=== PATIENT | male | born 1990 | race Caucasian/White ===

== ENCOUNTER 2018-03-01 11:16 | Emergency (ER) | payer BC ==
[~2018-03-01] VITALS: Ht 175.3 cm; Wt 81.2 kg
--- NOTE | 2018-03-01 11:32 | PHYS DOC ---
Past History Past Medical History: Testicular Torsion Additional Past Surgical Histo: orchectomy, and typmanostomy tubes Smoking: Cigarettes Alcohol Use: Occasionally Drug Use: None Adult General Chief Complaint Chief Complaint: abnormal ekg referred from clinic HPI HPI 28-year-old male presenting to the emergency department today after being seen in clinic having an EKG performed and being sent here. He reports having chest pain intermittently for 2 years. He describes it as a sharp shooting pain over the left chest. It is nonradiating. He denies fevers chills or cough. He denies strong family history of cardiac disease. He denies a family history of sudden cardiac or early in life. The patient denies unilateral leg swelling hemoptysis family or personal history of blood clotting disorders. The pt denies recent immobilization or surgery. The patient denies a history of diabetes high cholesterol. He denies having hypertension. Currently the patient denies having any pain. Review of systems is negative for abdominal pain nausea vomiting diaphoresis fevers chills. All other review of systems is negative unless otherwise noted in history of present illness. ED course: 28-year-old male presenting to the emergency department after being referred for a reported abnormal EKG in clinic. On arrival the patient is afebrile well-appearing. On examination he has clear lungs bilaterally. No crepitus to palpation the chest wall. Abdomen is soft and nontender. EKG and blood work obtained along with chest x-ray. [facility]24/2018 shows sinus rhythm with a regular rate. Prolonged AL interval. ST segments show mild repolarization in lead V3. No continuous segment ST elevation. Not consistent of ischemic changes. Repeat EKG here at approximately 11:33 AM on 03/01/2018. EKG shows mildly prolonged AL interval just at the upper range of normal. ST segments show similar mild ST segment elevation in lead V3. Not contiguous. Not suggestive of ischemia. No reciprocal changes. Patient currently does not have any chest pain to support any clinical signs or symptoms of ACS. Patient is low risk. Heart score calculated to be 1. Patient is wells low risk. D-dimer within normal limits. On reexamination the patient continues to not have chest pain. The patient has been examined and was not found to have an emergency medical condition. The patient was then discharged home in stable condition to follow up with their primary care physician over the next 2-3 days. They were to return if their symptoms worsened or if they were concerned for any reason. They were also instructed to return to the emergency department if they were unable to get the recommended and appropriate follow-up. [id number] discharge instructions and return precautions were given. Patient's questions were answered to their satisfaction. Patient is comfortable with plan. Review of Systems Review of Systems SEE ABOVE. Physical Exam Physical Exam SEE ABOVE Constitutional: Well developed, well nourished, no acute distress, non-toxic appearance. HENT: Normocephalic, atraumatic, bilateral external ears normal, oropharynx moist, no oral exudates, nose normal. Eyes: PERRLA, EOMI, conjunctiva normal, no discharge. [] Neck: Normal range of motion, no tenderness, supple, no stridor. [] Cardiovascular: regular rhythm, no murmur [] Lungs & Thorax: Bilateral breath sounds clear to auscultation Abdomen: Bowel sounds normal, soft, no tenderness, no masses, no pulsatile masses. [] Skin: Warm, dry, no erythema, no rash. Back: No tenderness, no CVA tenderness. [] Extremities: No tenderness, no cyanosis, no clubbing, ROM intact, no edema. No clinical signs of DVT. Neurologic: Alert and oriented X 3, normal motor function, normal sensory function, no focal deficits noted. [] Psychologic: Affect normal, judgement normal, mood normal. [] EKG EKG [] Radiology/Procedures Radiology/Procedures [] Course & Med Decision Making Course & Med Decision Making Pertinent Labs and Imaging studies reviewed. (See chart for details) [] Dragon Disclaimer Dragon Disclaimer This electronic medical record was generated, in whole or in part, using a voice recognition dictation system. Departure Departure: Impression: Primary Impression: Chest pain Disposition: 01 HOME, SELF-CARE Condition: STABLE Referrals: DAVID LU (PCP) Patient Instructions: Chest Pain (Nonspecific), [id number] Additional Instructions: Thank you for allowing us to participate in your care today. Return to the emergency department you have any new or worsening symptoms, or if you are concerned for any reason. Return to emergency department if you have any new or concerning symptoms including but not limited to fever, chills, nausea, vomiting, intractable pain, any new rashes, chest pain, shortness of air , uncontrolled bleeding, difficulty breathing, and/or vision loss. Follow up with your primary care physician within 3 days. Call your Primary Doctor tomorrow and inform them of your visit today. If you do not have a primary care provider we are happy to provide you with a list of our primary care providers contact information. This condition should be evaluated by your primary care physician and any recommended consulting services for continued management within 2-3 days after discharge. If at any time, you are having difficulty getting into your primary care doctor or a specialist, return to the emergency department. CLARICE ALEJANDRO MD Mar 01, 2018 11:32
--- NOTE | 2018-03-01 11:40 | RAD ---
Single view of the chest. 03/01/2018 11:07 AM Indication: chest pain for a few years Comparison: None Findings: There is no focal consolidation. There is no pleural effusion or pneumothorax. The cardiomediastinal silhouette and pulmonary vasculature are within normal limits. No acute osseous abnormalities are seen. Impression: No evidence of acute cardiopulmonary process. Electronically signed by: Myke Savage MD (03/01/2018 11:38 AM) [id number]
[2018-03-01] MEDS ORDERED: IV NORMAL SALINE 1,000ML 1,000 ML IV ONE (11:45)
[2018-03-01 11:54] LABS: BASO # 0.1 x10^3/uL (0.0-0.2); BASO % 1 % (0-3); EOS # 0.3 x10^3/uL (0.0-0.7); EOS % 4 % (0-3); HEMATOCRIT 48.4 % (39.0-53.0); HEMOGLOBIN 16.5 g/dL (13.0-17.5); LYMPH % 23 % (24-48); MEAN CORPUSCULAR HEMOGLOBIN 30 pg (25-35); MEAN CORPUSCULAR HGB CONC 34 g/dL (31-37); MEAN CORPUSCULAR VOLUME 86 fL (79-100); MONO # 0.8 x10^3/uL (0.0-1.1); MONO % 9 % (0-9); NEUT # 5.4 x10^3uL (1.8-7.7); NEUT % 63 % (31-73); PLATELET COUNT 288 x10^3/uL (140-400); RED BLOOD COUNT 5.61 x10^6/uL (4.30-5.70); RED CELL DISTRIBUTION WIDTH 12.5 % (11.5-14.5); WHITE BLOOD COUNT 8.6 x10^3/uL (4.0-11.0)
[2018-03-01 11:55] VITALS: BP 138/80
[2018-03-01 12:05] LABS: ALBUMIN 4.4 g/dL (3.4-5.0); CALCIUM 9.4 mg/dL (8.5-10.1); CREATININE 1.2 mg/dL (0.7-1.3); DIRECT BILIRUBIN 0.1 mg/dL (0.0-0.2); GFR 73.2; POTASSIUM 4.4 mmol/L (3.5-5.1); TOTAL BILIRUBIN 0.6 mg/dL (0.2-1.0); TOTAL PROTEIN 8.2 g/dL (6.4-8.2)
--- NOTE | 2018-03-05 16:13 | EKG ---
[address] [address] Test Date: 2018-03-01 Test Time: 11:33:06 Pat Name: SAMMIE LU Department: Room: Gender: M [employer]: : 1990 Requested By: CLARICE ALEJANDRO Order Number: [id number] Reading MD: Ambrocio East MD Measurements Intervals [place] Rate: 107 P: -25 IN: 198 QRS: 31 QRSD: 70 T: 33 QT: 318 QTc: 430 Interpretive Statements SINUS TACHYCARDIA Electronically Signed On 03-06-2018 8:58:13 CDT by Ambrocio East MD
== END 2018-03-01 12:47 | disposition home or self-care (01) ==
LOC: ER 11:16
DX: R07.89 Other chest pain (principal); F17.210 Nicotine dependence, cigarettes, uncomplicated
CPT/HCPCS: 36415; 71045; 80048; 80076; 83690; 84484; 85025; 85379; 99285; J7030

== ENCOUNTER 2021-06-17 19:54 | Emergency (ER) | payer SELFPAY ==
[~2021-06-17] VITALS: Ht 175.3 cm; Wt 81.2 kg
[2021-06-17 20:09] VITALS: BP 130/81
[2021-06-17] MEDS ORDERED: IBUPROFEN 400 MG TABLET. PO ONE (20:15)
--- NOTE | 2021-06-17 20:19 | PHYS DOC ---
Past History Past Medical History: No Pertinent History Past Surgical History: Other Additional Past Surgical Histo: orchectomy, and typmanostomy tubes Smoking: Cigarettes Alcohol Use: Occasionally Drug Use: None General Adult EDM: Chief Complaint: LOWEREXTREMITY INJURY HPI: HPI: Patient is a 31-year-old male coming in for right ankle pain and swelling. Patient fell down a hill about 8 hours prior to arrival. Has not been able to feel weak during the day, is not taking medications for pain. Has had previous injuries to this ankle but denies any fractures or surgeries. Review of Systems: Review of Systems: All other systems within normal limits except for as noted in the HPI Allergies: Allergies: Allergies Coded Allergies Type Severity Reaction Last Updated Verified No Known Drug Allergies 03/01/18 No Physical Exam: PE: Constitutional: Well developed, well nourished, no acute distress, non-toxic appearance. [] HENT: Normocephalic, atraumatic, bilateral external ears normal, nose normal. [] Eyes: PERRLA, conjunctiva normal, no discharge. [] Neck: No rigidity, supple, no stridor. [] Cardiovascular: Regular rate and rhythm, brisk cap refill [] Lungs & Thorax: Non labored symmetric respirations, no tachypnea or respiratory distress [] Abdomen: Soft, nondistended. Skin: Warm, dry, no erythema, no rash. [] Back: Unremarkable Extremities: No deformities, range of motion grossly intact, no lower extremity edema. Right ankle exam: Tenderness and swelling on lateral malleolus [] Neurologic: Alert and oriented X 3, no focal deficits noted. [] Psychologic: Affect normal, judgement normal, mood normal. [] Current Patient Data: Vital Signs: Vital Signs Date Time Temp Pulse Resp B/P (MAP) Pulse Ox O2 Delivery O2 Flow Rate FiO2 06/17/21 20:09 108 18 130/81 (97) 99 EKG: EKG: [] Radiology/Procedures: Radiology/Procedures: [address] [address] IMAGING REPORT Signed PATIENT: SAMMIE LU ACCOUNT: [id number] : 1990 LOCATION: ER AGE: 31 SEX: M EXAM STATUS: REG ER ORD. PHYSICIAN: NICOLAS HOLLIS MD REASON: lateral malleolus swelling PROCEDURE: ANKLE RIGHT 3V Study: XR EXAM OF ANKLE_RIGHT 3VIEWS Indication: Lateral malleolus swelling. Comparison: None. Findings: Edematous soft tissues at the lateral ankle. The malleoli are intact. Symmetric ankle mortise considering the absence of weightbearing. Unremarkable talar dome. No acute fracture seen throughout the partially imaged foot. Impression: Edematous soft tissues at the lateral ankle. No acute fracture is identified or traumatic malalignment. Electronically signed by: SAMMIE ANDERSON MD (06/17/2021 10:23 PM) [id number] DICTATED AND SIGNED BY: SAMMIE ANDERSON MD DATE: 06/17/212221 CC: NICOLAS HOLLIS MD; PCP,NO ~MTH0 0 [] Heart Score: C/O Chest Pain: No Risk Factors: Risk Factors: DM, Current or recent (<one month) smoker, HTN, HLP, family history of CAD, obesity. Risk Scores: Score 0 - 3: 2.5% MACE over next 6 weeks - Discharge Home Score 4 - 6: 20.3% MACE over next 6 weeks - Admit for Clinical Observation Score 7 - 10: 72.7% MACE over next 6 weeks - Early Invasive Strategies Course & Med Decision Making: Course & Med Decision Making Pertinent Labs and Imaging studies reviewed. (See chart for details) [] Dragon Disclaimer: Dragon Disclaimer: This electronic medical record was generated, in whole or in part, using a voice recognition dictation system. Departure Departure: Impression: Primary Impression: Right ankle sprain Disposition: HOME / SELF CARE / HOMELESS Condition: STABLE Referrals: PCP,NO (PCP) Patient Instructions: RICE - Routine Care for Injuries Scripts Ibuprofen (IBUPROFEN) 800 Mg Tablet 1 TAB PO TID PRN for PAIN, #30 TAB Prov: NICOLAS HOLLIS MD 06/17/21 NICOLAS HOLLIS MD Jun 17, 2021 20:19
--- NOTE | 2021-06-17 22:25 | RAD ---
Study: XR EXAM OF ANKLE_RIGHT 3VIEWS Indication: Lateral malleolus swelling. Comparison: None. Findings: Edematous soft tissues at the lateral ankle. The malleoli are intact. Symmetric ankle mortise conside ring the absence of weightbearing. Unremarkable talar dome. No acute fracture seen throughout the par tially imaged foot. Impression: Edematous soft tissues at the lateral ankle. No acute fracture is identified or traumatic malalignmen t. Electronically signed by: SAMMIE ANDERSON MD (06/17/2021 10:23 PM) [id number]
[2021-06-17] MEDS ORDERED: IBUP800T19 PO (22:47)
== END 2021-06-17 23:06 | disposition home or self-care (01) ==
LOC: ER 19:54
DX: S93.401A Sprain of unspecified ligament of right ankle, initial encounter (principal); F17.210 Nicotine dependence, cigarettes, uncomplicated; W17.81XA Fall down embankment (hill), initial encounter; Y93.89 Activity, other specified; Y92.89 Other specified places as the place of occurrence of the external cause; Y99.8 Other external cause status
CPT/HCPCS: 73610; 99283-25